=== PATIENT | female | born 1955 | race Caucasian/White ===

== ENCOUNTER 2017-06-24 07:52 | Outpatient (CLI) | payer OTHER ==
[~2017-06-24] VITALS: Ht 160 cm; Wt 71.7 kg
[~2017-06-24 07:52] MED LIST: BUPR150T3 PO; FLAX10002 PO; GLUT500C PO; L-AR500T PO; L-CA1CAP PO; MELA3CAP2 PO; MELO15TA4 PO; MOME50SP; OMEP40CA2 PO; VITATAB11 PO; ZYRT10TA2 PO; [UNRECOGNIZED DRUG - CODE] PO; [UNRECOGNIZED DRUG - OTHER] PO
[2017-06-24] MEDS ORDERED: NS 1,000 ML IV ONE (08:30)
[2017-06-24] MEDS ORDERED: PROPOFOL 200 MG/20 ML VIAL As Ordered ONE ×2 (09:06→09:17)
--- NOTE | 2017-06-24 09:25 | ROOR ---
Patient Name: Nadine Dorman Procedure Date: 06/24/2017 9:04 AM Date of : 1955 Age: 61 Room: [facility] Gender: Female Note Status: Finalized Procedure: Colonoscopy Indications: High risk colon cancer surveillance: Personal history of colonic polyps, Last colonoscopy: April 2012 Providers: Ja SEVILLA MD Referring MD: HECTOR SHARMA NP Requesting Provider: Medicines: Monitored Anesthesia Care Complications: No immediate complications. Procedure: Pre-Anesthesia Assessment: - The heart rate, respiratory rate, oxygen saturations, blood pressure, adequacy of pulmonary ventilation, and response to care were monitored throughout the procedure. The Colonoscope was introduced through the anus and advanced to the cecum, identified by appendiceal orifice and ileocecal valve. The colonoscopy was performed without difficulty. The patient tolerated the procedure well. The quality of the bowel preparation was good. Findings: The perianal and digital rectal examinations were normal. Two sessile polyps were found in the ascending colon. The polyps were 3 to 5 mm in size. These polyps were removed with a cold snare. Resection and retrieval were complete. A 4 mm polyp was found in the sigmoid colon. The polyp was sessile. The polyp was removed with a cold snare. Resection and retrieval were complete. Multiple medium-mouthed diverticula were found in the sigmoid colon and descending colon. The exam was otherwise without abnormality on direct and retroflexion views. Impression: - Two 3 to 5 mm polyps in the ascending colon, removed with a cold snare. Resected and retrieved. - One 4 mm polyp in the sigmoid colon, removed with a cold snare. Resected and retrieved. - Moderate diverticulosis in the sigmoid colon and in the descending colon. - The examination was otherwise normal on direct and retroflexion views. Recommendation: - Repeat colonoscopy in 3 years for surveillance. Ja Sevilla MD Ja SEVILLA MD 06/24/2017 9:25:47 AM This report has been signed electronically. Number of Addenda: 0 Note Initiated On: 06/24/2017 9:04 AM Estimated Blood Loss: Estimated blood loss: none.
[2017-06-24 09:45] VITALS: BP 114/79
== END 2017-06-24 09:50 | disposition home or self-care (01) ==
LOC: M OPP 07:52
PROVIDERS: ATTEND Internal Medicine Gastroenterology
DX: Z12.11 Encounter for screening for malignant neoplasm of colon (principal); Z86.010 Personal history of colon polyps; D12.2 Benign neoplasm of ascending colon; D12.5 Benign neoplasm of sigmoid colon; K57.30 Diverticulosis of large intestine without perforation or abscess without bleeding; R01.1 Cardiac murmur, unspecified; R12 Heartburn; M19.90 Unspecified osteoarthritis, unspecified site; Z86.19 Personal history of other infectious and parasitic diseases; M54.2 Cervicalgia; Z78.0 Asymptomatic menopausal state; M81.0 Age-related osteoporosis without current pathological fracture; Z87.891 Personal history of nicotine dependence; Z88.0 Allergy status to penicillin; Z88.2 Allergy status to sulfonamides; Z79.899 Other long term (current) drug therapy; Z80.3 Family history of malignant neoplasm of breast; Z80.51 Family history of malignant neoplasm of kidney

== ENCOUNTER → 2018-01-02 | Outpatient (REF) | payer OTHER | LOC: M LAB REF 16:29 | DX: N76.0 Acute vaginitis (principal) ==

== ENCOUNTER → 2019-01-06 | Outpatient (REF) | payer OTHER ==
[~2019-01-06] MED LIST changes: +MELO15TA28 PO; -MELO15TA4 PO; +ZYRT10CA5 PO; -ZYRT10TA2 PO
== END ==
LOC: M SFHCLERA 11:13
PROVIDERS: ATTEND Nurse Practitioner Family
DX: J02.9 Acute pharyngitis, unspecified (principal)

== ENCOUNTER 2019-10-22 12:48 | Emergency (ER) | payer BC, OTHER ==
[~2019-10-22] VITALS: Ht 160 cm; Wt 69.5 kg
[~2019-10-22 12:48] MED LIST changes: -OMEP40CA2 PO; +OMEP40CA97 PO
[2019-10-22 12:49] VITALS: BP 140/67
[2019-10-22] MEDS ORDERED: PROBCAP14 PO (14:25)
[2019-10-22] MEDS ORDERED: CALC1TAB42 PO (14:25)
[2019-10-22] MEDS ORDERED: CVS50CAP PO (14:25)
[2019-10-22] MEDS ORDERED: FLON1SPR NARES (14:25)
[2019-10-22] MEDS ORDERED: VITA500C24 PO (14:25)
[2019-10-22] MEDS ORDERED: ATOR1TAB19 PO (14:25)
[2019-10-22] MEDS ORDERED: TETRACAINE 0.5% OPHTH SOLN 4ML OD ONE (16:00)
[2019-10-22] MEDS ORDERED: FLUORESCEIN OPHTH 1 MG STRIP OD ONE (16:00)
[2019-10-22] MEDS ORDERED: IBUP-1022 PO (16:01)
[2019-10-22] MEDS ORDERED: VALA1TAB5 PO (16:01)
== END 2019-10-22 16:08 | disposition home or self-care (01) ==
LOC: M ED 12:48
DX: B02.39 Other herpes zoster eye disease (principal); F17.200 Nicotine dependence, unspecified, uncomplicated; Z88.2 Allergy status to sulfonamides; Z88.0 Allergy status to penicillin; Z79.899 Other long term (current) drug therapy

== ENCOUNTER → 2020-01-24 | Outpatient (REF) | payer BC ==
[~2020-01-24] MED LIST changes: +ATOR1TAB19 PO; +CALC1TAB42 PO; +CVS50CAP PO; +FLON1SPR NARES; +IBUP-1022 PO; +PROBCAP14 PO; +VALA1TAB5 PO; +VITA500C24 PO
== END ==
LOC: M LAB REF 16:58
PROVIDERS: ATTEND Registered Nurse
DX: R10.32 Left lower quadrant pain (principal)

== ENCOUNTER 2023-04-11 09:08 | Day surgery (SDC) | payer BC ==
[~2023-04-11] VITALS: Ht 157.5 cm; Wt 65.5 kg
[~2023-04-11 09:08] MED LIST changes: +BUPR150T12 PO; -BUPR150T3 PO; +BUSP10TA PO; +GALZ50CA PO; +GNPTAB36 PO; +L-LY500T15 PO; +LEXA5TAB13 PO; +MELA3TAB49 PO; -MOME50SP; +NASO50SP3; +NS 1,000 ML IV ONE; +OMEP-173 PO; +OMEP40CA4 PO; -OMEP40CA97 PO; +VALA500T5 PO; +VITA100093 PO
[2023-04-11] MEDS ORDERED: LIDOCAINE 2% 100MG/5ML SDV (FOR ANES.) As Ordered ONE (10:31)
[2023-04-11] MEDS ORDERED: propofoL 200 MG/20 ML VIAL As Ordered ONE (10:31)
[2023-04-11 11:07] VITALS: TEMP 97.2
[2023-04-11 11:20] VITALS: BP 132/74; O2SAT 98
== END 2023-04-11 11:31 | disposition home or self-care (01) ==
LOC: M OPP 09:08
PROVIDERS: ATTEND Internal Medicine Gastroenterology
DX: Z12.11 Encounter for screening for malignant neoplasm of colon (principal); Z86.010 Personal history of colon polyps; D12.2 Benign neoplasm of ascending colon; K64.8 Other hemorrhoids; K57.30 Diverticulosis of large intestine without perforation or abscess without bleeding; F17.200 Nicotine dependence, unspecified, uncomplicated; Z79.02 Long term (current) use of antithrombotics/antiplatelets; Z79.52 Long term (current) use of systemic steroids; Z79.899 Other long term (current) drug therapy; Z88.0 Allergy status to penicillin; Z88.2 Allergy status to sulfonamides

== ENCOUNTER → 2023-05-04 | Outpatient (CLI) | payer BC ==
[~2023-05-04] MED LIST changes: -NS 1,000 ML IV ONE
== END ==
LOC: M RAD 07:31
PROVIDERS: ATTEND Physician Assistant Medical
DX: R93.3 Abnormal findings on diagnostic imaging of other parts of digestive tract (principal); K80.20 Calculus of gallbladder without cholecystitis without obstruction; R14.0 Abdominal distension (gaseous)